=== PATIENT | female | born 1940 | race American Indian/Alaskan Native ===

== ENCOUNTER 2017-04-01 06:14 | Day surgery (SDC) | payer MEDICARE ==
[2017-04-01] MEDS ORDERED: ECOTRIN PO ONE (06:38)
[2017-04-01] MEDS ORDERED: NACL 0.9% 500 ML 500 ML IV SCH (07:00)
[2017-04-01 07:04] LABS: Hematocrit 37.7 % (30.3-42.9); Mean Corpuscular HGB Conc 35 % (30-34); Mean Corpuscular Hemoglobin 31 pg (28-32); Mean Corpuscular Volume 91 fl (79-97); Platelet Count 245 K/mm3 (140-440); Red Blood Count 4.16 M/mm3 (3.65-5.03); Red Cell Distribution Width 13.2 % (13.2-15.2); White Blood Count 5.1 K/mm3 (4.5-11.0)
[2017-04-01 07:20] LABS: INR 0.95 (0.87-1.13)
[2017-04-01 07:28] LABS: Anion Gap 16 mmol/L; BUN/Creatinine Ratio 18.57; Blood Urea Nitrogen 13 mg/dL (7-17); Carbon Dioxide 29 mmol/L (22-30); Chloride 100.9 mmol/L (98-107); Glucose 171 mg/dL (65-100); Potassium 3.4 mmol/L (3.6-5.0); Sodium 142 mmol/L (137-145)
[2017-04-01 08:36] LABS: Blastocytes % (Manual) 0 %
[2017-04-01 08:40] LABS: Diff Status Complete; RBC Morphology Normal
[2017-04-01] MEDS ORDERED: HEPARIN 10,000 UNITS/10 ML ONE (09:56)
[2017-04-01] MEDS ORDERED: XYLOCAINE 2% INFILTRATI ONE (09:56)
[2017-04-01] MEDS ORDERED: NITROGLYCERIN SYRINGE 0 ML ONE (09:56)
[2017-04-01] MEDS ORDERED: HEPARIN/NS 5000 UNIT/500ML(CATH LAB) 1,000 ML IR ONE (09:56)
[2017-04-01] MEDS ORDERED: VERSED ONE (09:57)
[2017-04-01] MEDS ORDERED: SUBLIMAZE ONE (09:57)
--- NOTE | 2017-04-01 10:53 | Discharge Summary ---
Short Stay Discharge Plan Activity: advance as tolerated Weight Bearing Status: Partial Weight Bearing Diet: low fat, low cholesterol, low salt, diabetic Wound: keep clean and dry Special Instructions: no heavy lifting (3 days) Follow up with: SILVIA CAMERON MD [Primary Care Provider] - 7 Days AXEL AGUIRRE MD [Staff Physician] - 7 Days
[2017-04-01] MEDS ORDERED: NACL 0.9% 1000 ML 1,000 ML IV SCH (11:00)
--- NOTE | 2017-04-01 11:37 | Cardiac Catherization Report ---
CARDIAC CATHETERIZATION REASON FOR PROCEDURE: Chest pain and abnormal thallium stress test. PROCEDURE: The patient was prepped and draped in a sterile fashion after informed consent. Right femoral artery was entered using the Seldinger technique followed by placement of a 6-Malay sheath. Selective left and right coronary angiography was performed using #4 right and left Luana catheters. A pigtail catheter was used for left ventricular angiography. The catheters were removed, sheath removed, and hemostasis achieved using an Angio-Seal device. The patient was returned to the postprocedure unit in stable condition. There were no complications. FINDINGS: HEMODYNAMICS: Left ventricle end-diastolic pressure was 23, following coronary angiography. Ascending aortic pressure was 166/82. There was no significant pressure gradient on pullback across the aortic valve. CORONARY ANGIOGRAPHY: There was mild irregularities of the left main coronary artery. The left anterior descending artery contained a focal, 10% to 20% stenosis of its mid segment. Before that, a medium sized proximal diagonal branch of the LAD contain diffuse moderate atherosclerosis in its proximal to mid segment. Otherwise, the rest of the LAD and diagonal systems were free of significant disease. The circumflex artery contained a proximal, 30% to 40% stenosis. Following this, mild irregularities were noted of the rest of the circumflex system. The right coronary artery was dominant. This vessel contained a proximal 30% to 50% stenosis. This was followed by another, 30% to 50% stenosis of the distal AV groove segment, midway between the acute margin and the origin of the right posterior descending branch. There was normal left ventricular systolic function, ejection fraction 55% to 60%. CONCLUSION: 1. Mild to moderate, nonobstructive 3-vessel atherosclerosis as noted above. 2. Normal left ventricular systolic function, ejection fraction of 55% to 60%. RECOMMENDATION: Aggressive risk factor modification, medical therapy. JOB# [id number] DELFINA/BARTOLO BARNES
[2017-04-01 15:13] VITALS: BP 164/76
== END 2017-04-01 15:40 | disposition home or self-care (01) ==
LOC: CATHLABREC 06:14
PROVIDERS: ATTEND Internal Medicine Cardiovascular Disease
DX: I25.10 Atherosclerotic heart disease of native coronary artery without angina pectoris (principal); I10 Essential (primary) hypertension; D64.9 Anemia, unspecified; J45.909 Unspecified asthma, uncomplicated; G47.00 Insomnia, unspecified; M15.9 Polyosteoarthritis, unspecified; E10.9 Type 1 diabetes mellitus without complications; E78.5 Hyperlipidemia, unspecified; Z90.710 Acquired absence of both cervix and uterus; Z96.659 Presence of unspecified artificial knee joint; Z79.82 Long term (current) use of aspirin; Z79.4 Long term (current) use of insulin; Z79.899 Other long term (current) drug therapy; Z98.890 Other specified postprocedural states; Z82.49 Family history of ischemic heart disease and other diseases of the circulatory system
CPT/HCPCS: 36415; 80048; 82962; 85007; 85025; 85610; 85730; 93005; 93010; 93458; C1760; C1894; J1644; J2250; J3010; J7040; Q9967

== ENCOUNTER 2018-02-12 10:59 | Outpatient (CLI) | payer MEDICARE ==
[2018-02-12 11:52] LABS: Blood Urea Nitrogen 8 mg/dL (7-17)
--- NOTE | 2018-02-12 16:48 | Cat Scan Report ---
FINAL REPORT EXAM: CT ABDOMEN PELVIS W CON HISTORY: GASTROINTESTINAL STROMAL TUMOR OF STOMACH TECHNIQUE: CT of the abdomen and pelvis was performed after the administration of intravenous contrast. Subsequently, CT of the abdomen and pelvis was performed in the delayed phase. Reconstructions were included in the coronal and sagittal planes. PRIORS: None. FINDINGS: Lower thorax: There is a 3 millimeter nodule in the anterior aspect of the right lower lobe on series 2, image 126. 2 millimeter pulmonary nodule is seen in the anterior aspect of the right lower lobe on series 2, image 128. Mild coronary artery calculi are seen. Liver: The liver is normal in attenuation. No intrahepatic biliary duct dilation. No focal hepatic lesions. Gallbladder/ biliary system: No cholelithiasis. The common bile duct appears nondilated. Spleen: No splenic lesions are seen. Pancreas: No pancreatic lesions are seen. No pancreatic duct dilation. Kidneys: No renal masses, cysts or hydronephrosis. Adrenal glands: No adrenal masses. Vasculature: The abdominal and pelvic vasculature is patent without variant anatomy. Atherosclerotic calculi are seen in the abdominal aorta. Lymph nodes: Mildly prominent retroperitoneal and jeyson hepatis lymph nodes are seen. A lymph node in the portacaval region measures 1.8 x 1.1 centimeters. Several mildly enlarged right lower quadrant lymph nodes are seen. One lymph node just anterior to the right psoas muscle measures 1.3 x 1.3 centimeters. Bowel, mesentery, peritoneum: No bowel obstruction. No free fluid or free air. The appendix was not definitively seen. No colonic diverticulosis. There is suggestion of mild wall thickening of the gastric antrum. Urinary bladder: No filling defects are seen. Pelvis: Post hysterectomy. Abdominal wall: There is a small fat containing umbilical hernia. Bones: Degenerative changes are seen in the spine. Mild anterolisthesis of L4 on L5 is likely chronic related to degenerative change. IMPRESSION: 1. Wall thickening of the gastric antrum may be related to the patient's known gastrointestinal stromal tumor of the stomach. 2. Several prominent abdominal and pelvic lymph nodes may be reactive versus neoplastic. 3. Small right lower lobe pulmonary nodules may represent metastatic disease versus pulmonary granulomata.
--- NOTE | 2018-02-12 17:01 | Cat Scan Report ---
FINAL REPORT EXAM: CT CHEST W CON HISTORY: GASTROINTESTINAL STROMAL TUMOR OF STOMACH TECHNIQUE: CT of the chest was performed after the administration of intravenous contrast. Note that the CT images of the abdomen and pelvis were also included on this accession number however were dictated under a separate accession number. Reconstructions were included in the coronal and sagittal planes. PRIORS: None. FINDINGS: Great vessels: The thoracic aorta is normal in caliber. The great vessels are patent. Lungs and airways: No pleural effusion. 3 millimeter pulmonary nodule seen in the anterior aspect of the right lower lobe on series 3, image 73. A 2 millimeter pulmonary nodule seen in the anterior aspect of the right lower lobe on series 3, image 75. no airspace consolidation. The airways are patent. No bronchiectasis. Mediastinum, heart, pericardium: No mediastinal lymphadenopathy. No cardiac chamber enlargement. No pericardial effusion. Mild coronary artery calculi are seen. Thoracic inlet, chest wall, axilla: No chest wall masses. The visualized portions of the thyroid gland demonstrate no focal lesion. No axillary lymphadenopathy. Upper abdomen: The visualized structures demonstrate no specific abnormality. Bones: Degenerative changes are seen in the spine. IMPRESSION: 1. Two small right lower lobe pulmonary nodules may represent metastatic disease versus pulmonary granulomata. 2. Mild coronary artery calculi.
== END 2018-02-12 11:00 | disposition home or self-care (01) ==
LOC: CT 10:59
PROVIDERS: ATTEND Internal Medicine Hematology & Oncology
DX: R91.1 Solitary pulmonary nodule (principal); I25.10 Atherosclerotic heart disease of native coronary artery without angina pectoris; M47.9 Spondylosis, unspecified; K21.9 Gastro-esophageal reflux disease without esophagitis; I10 Essential (primary) hypertension; E78.00 Pure hypercholesterolemia, unspecified; J45.909 Unspecified asthma, uncomplicated; M19.90 Unspecified osteoarthritis, unspecified site; E11.9 Type 2 diabetes mellitus without complications; Z90.710 Acquired absence of both cervix and uterus
CPT/HCPCS: 36415; 71260; 74177; 82565; 84520; Q9967

== ENCOUNTER 2018-07-23 12:50 | Emergency (ER) | payer MEDICARE ==
--- NOTE | 2018-07-23 13:35 | Emergency Department Report ---
Blank Doc - Documentation Documentation: 77-year-old female with history of GIST tumor presents to the ED for evaluation of pain resulting from syncopal episode on yesterday. Patient reports weakness over the last few days. Patient states yesterday she was walking with her cane, became lightheaded and passed out briefly. Patient states she hit her head, now reports mild headache that comes and goes. Also has pain to left posterior shoulder. Since yesterday's fall she has also been having right leg weakness, d enies pain to the leg. Will place orders for CT head, labs, EKG, and xrays. Patient will be placed over in the main ER for further evaluation.
[2018-07-23 13:53] LABS: Hemoglobin 12.1 gm/dl (10.1-14.3); Mean Corpuscular HGB Conc 34 % (30-34); Mean Corpuscular Volume 92 fl (79-97); Platelet Count 265 K/mm3 (140-440); Red Cell Distribution Width 13.8 % (13.2-15.2)
[2018-07-23 14:01] LABS: INR 0.93 (0.87-1.13)
[2018-07-23 14:02] LABS: BUN/Creatinine Ratio 12; Blood Urea Nitrogen 11 mg/dL (7-17); Calcium 8.7 mg/dL (8.4-10.2); Hemolysis Index 18; Partial Thromboplastin Time 26.9 Sec. (24.2-36.6)
--- NOTE | 2018-07-23 14:28 | XRay Report ---
LEFT SHOULDER RADIOGRAPHS INDICATION: Fall, pain. COMPARISON: None similar. FINDINGS: Frontal and Y views of the left shoulder somewhat technically limited, though suggests grossly intact humeral head against the glenoid, to the extent assessed. Intact AC joint articulation as well. Normal imaged scapula, left lung and ribs. Possible osteopenia. CONCLUSION: No acute left shoulder radiographic abnormality on this limited exam, as described. Please correlate. Thank you for the opportunity to participate in this patient's care.
[2018-07-23 14:29] LABS: Basophils % (Manual) 0 % (0.0-1.8); Total Cells Counted 100
[2018-07-23 14:30] LABS: Anisocytosis 1+; Platelet Estimate Consistent w Auto; Poikilocytosis 1+
--- NOTE | 2018-07-23 14:34 | Emergency Department Report ---
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 NO syncope. She tripped over curb. She did not eat breakfast and had been feeling unwell. She also has had 3-4 weeks of left upper back pain in the rhomboid region. Pain is quite severe. Started off as a pimple then developed to itching. After the skin process resolved, she still had persistent pain. She evaluated by her oncology physician yesterday and refered to ER for imaging. She takes tramadol in general for arthritic type pain. She also has had mild intermittent shooting pains in her chest. She is followed by PCP Dr. Jax Gudino. She also is followed by [facility]. -: Gradual, week(s) (3-4) Location: head, chest - Related Data Home Medications Medication Instructions Recorded Confirmed Last Taken Aspirin EC [Aspirin Enteric Coated 81 mg PO QDAY 04/01/17 04/01/17 03/31/17 TAB] Carvedilol [Coreg] 6.25 mg PO BID 04/01/17 04/01/17 03/31/17 Cyclobenzaprine HCl [Flexeril 5 MG 5 mg PO PRN PRN 04/01/17 04/01/17 1 Month Ago TAB] ~03/01/17 Insulin Glargine,Hum.rec.anlog 0 units SQ QHS 04/01/17 04/01/17 03/31/17 [Lantus Solostar] Lansoprazole [Prevacid] 30 mg PO QDAY 04/01/17 04/01/17 03/31/17 Rosuvastatin Calcium [Crestor] 40 mg PO QHS 04/01/17 04/01/17 03/31/17 glipiZIDE [glipiZIDE XL] 10 mg PO BID 04/01/17 04/01/17 03/31/17 hydroCHLOROthiazide [HCTZ] 12.5 mg PO QDAY 04/01/17 04/01/17 03/31/17 Previous Rx's Medication Instructions Recorded Last Taken Type HYDROcodone/APAP 7.5-325 [Maple 1 each PO Q8HR PRN #15 tablet 02/02/15 2 Months Ago Rx 7.5-325 mg TAB] ~01/29/17 HYDROcodone/APAP 5-325 [Maple 1 each PO Q6HR PRN #15 tablet 07/23/18 Unknown Rx 5/325] Allergies Allergy/AdvReac Type Severity Reaction Status Date / Time No Known Allergies Allergy Verified 10/28/14 16:09 ED Review of Systems ROS: Stated complaint: PAIN IN BACK/WEAK/FELL Other details as noted in HPI Comment: All other systems reviewed and negative Constitutional: malaise Cardiovascular: chest pain Musculoskeletal: back pain ED Past Medical Hx - Past Medical History Hx Hypertension: Yes (5yrs ago) Hx Heart Attack/AMI: No Hx Congestive Heart Failure: No Hx Diabetes: Yes (IDDM) Hx GERD: Yes Hx Arthritis: Yes Hx Seizures: No Hx Asthma: Yes Additional medical history: Stomach Ca- taking gleevec - Surgical History Additional Surgical History: cardiac cath 2017 no stent "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 infection in my toe 3 wks ago" - Social History Smoking Status: Never Smoker Substance Use Type: None - Medications Home Medications: Home Medications Medication Instructions Recorded Confirmed Last Taken Type HYDROcodone/APAP 7.5-325 [Maple 1 each PO Q8HR PRN #15 tablet 02/02/15 04/01/17 2 Months Ago Rx 7.5-325 mg TAB] ~01/29/17 Aspirin EC [Aspirin Enteric Coated 81 mg PO QDAY 04/01/17 04/01/17 03/31/17 History TAB] Carvedilol [Coreg] 6.25 mg PO BID 04/01/17 04/01/17 03/31/17 History Cyclobenzaprine HCl [Flexeril 5 MG 5 mg PO PRN PRN 04/01/17 04/01/17 1 Month Ago History TAB] ~03/01/17 Insulin Glargine,Hum.rec.anlog 0 units SQ QHS 04/01/17 04/01/17 03/31/17 History [Lantus Solostar] Lansoprazole [Prevacid] 30 mg PO QDAY 04/01/17 04/01/17 03/31/17 History Rosuvastatin Calcium [Crestor] 40 mg PO QHS 04/01/17 04/01/17 03/31/17 History glipiZIDE [glipiZIDE XL] 10 mg PO BID 04/01/17 04/01/17 03/31/17 History hydroCHLOROthiazide [HCTZ] 12.5 mg PO QDAY 04/01/17 04/01/17 03/31/17 History HYDROcodone/APAP 5-325 [Maple 1 each PO Q6HR PRN #15 tablet 07/23/18 Unknown Rx 5/325] ED Physical Exam - General Limitations: No Limitations General appearance: alert, in no apparent distress - Head Head exam: Present: atraumatic, normocephalic - Eye Eye exam: Present: normal appearance - ENT ENT exam: Present: mucous membranes moist - Neck Neck exam: Present: normal inspection. Absent: tenderness, meningismus - Respiratory Respiratory exam: Present: normal lung sounds bilaterally. Absent: respiratory distress, wheezes, rales, rhonchi - Cardiovascular Cardiovascular Exam: Present: regular rate, normal rhythm. Absent: systolic murmur, diastolic murmur, rubs, gallop - GI/Abdominal GI/Abdominal exam: Present: soft, normal bowel sounds. Absent: distended, tenderness, guarding, rebound - Extremities Exam Extremities exam: Present: normal inspection - Back Exam Back exam: Present: normal inspection, full ROM. Absent: tenderness, CVA tenderness (R), CVA tenderness (L), vertebral tenderness - Neurological Exam Neurological exam: Present: alert, oriented X3 - Psychiatric Psychiatric exam: Present: normal affect, normal mood - Skin Skin exam: Present: warm, dry, intact, normal color. Absent: rash ED Course Vital Signs 07/23/18 07/23/18 07/23/18 12:57 13:05 13:47 Temperature 97.7 F 97.7 F Pulse Rate 84 85 Respiratory 20 20 Rate Blood Pressure 168/85 168/85 O2 Sat by Pulse 100 100 84 Oximetry 07/23/18 07/23/18 07/23/18 14:01 14:15 14:50 Temperature Pulse Rate Respiratory Rate Blood Pressure 129/65 129/65 129/65 O2 Sat by Pulse 96 98 100 Oximetry 07/23/18 07/23/18 07/23/18 15:01 15:15 15:31 Temperature Pulse Rate 82 81 81 Respiratory 12 13 12 Rate Blood Pressure 155/78 155/78 129/65 O2 Sat by Pulse 97 100 100 Oximetry 07/23/18 07/23/18 07/23/18 15:45 16:01 16:15 Temperature Pulse Rate 80 78 80 Respiratory 19 16 11 L Rate Blood Pressure 129/65 129/65 129/65 O2 Sat by Pulse 98 96 98 Oximetry 07/23/18 16:57 Temperature Pulse Rate Respiratory Rate Blood Pressure 129/65 O2 Sat by Pulse 91 Oximetry ED Medical Decision Making - Lab Data Result diagrams: 07/23/18 13:40 07/23/18 13:40 Laboratory Results - last 24 hr 07/23/18 07/23/18 07/23/18 13:40 13:40 13:40 WBC 4.3 L RBC 3.90 Hgb 12.1 Hct 36.0 MCV 92 MCH 31 MCHC 34 RDW 13.8 Plt Count 265 Lymph % (Auto) Filter Machine Operator Add Manual Diff Complete Total Counted 100 Seg Neutrophils % Filter Machine Operator Seg Neuts % (Manual) 29.0 L Band Neutrophils % 0 Lymphocytes % (Manual) 59.0 H Reactive Lymphs % (Man) 0 Monocytes % (Manual) 6.0 Eosinophils % (Manual) 6.0 H Basophils % (Manual) 0 Metamyelocytes % 0 Myelocytes % 0 Promyelocytes % 0 Blast Cells % 0 Nucleated RBC % Not Reportable Seg Neutrophils # Man 1.2 L Band Neutrophils # 0.0 Lymphocytes # (Manual) 2.5 Abs React Lymphs (Man) 0.0 Monocytes # (Manual) 0.3 Eosinophils # (Manual) 0.3 Basophils # (Manual) 0.0 Metamyelocytes # 0.0 Myelocytes # 0.0 Promyelocytes # 0.0 Blast Cells # 0.0 WBC Morphology Not Reportable Hypersegmented Neuts Not Reportable Hyposegmented Neuts Not Reportable Hypogranular Neuts Not Reportable Smudge Cells Not Reportable Toxic Granulation Not Reportable Toxic Vacuolation Not Reportable Dohle Bodies Not Reportable Pelger-Huet Anomaly Not Reportable Megan Rods Not Reportable Platelet Estimate Consistent w auto Clumped Platelets Not Reportable Plt Clumps, EDTA Not Reportable Large Platelets Not Reportable Giant Platelets Not Reportable Platelet Satelliting Not Reportable Plt Morphology Comment Not Reportable RBC Morphology Not Reportable Dimorphic RBCs Not Reportable Polychromasia Not Reportable Hypochromasia Not Reportable Poikilocytosis 1+ Anisocytosis 1+ Microcytosis Not Reportable Macrocytosis Not Reportable Spherocytes Not Reportable Pappenheimer Bodies Not Reportable Sickle Cells Not Reportable Target Cells Not Reportable Tear Drop Cells Not Reportable Ovalocytes Not Reportable Helmet Cells Not Reportable Meléndez-Western Bodies Not Reportable [place] Rings Not Reportable James Cells Not Reportable Bite Cells Not Reportable Crenated Cell Not Reportable Elliptocytes Few Acanthocytes (Spur) Not Reportable Rouleaux Not Reportable Hemoglobin C Crystals Not Reportable Schistocytes Not Reportable Malaria parasites Not Reportable Tenzin Bodies Not Reportable Hem Pathologist Commnt No PT 12.9 INR 0.93 APTT 26.9 Sodium 137 Potassium 3.8 Chloride 97.2 L Carbon Dioxide 30 Anion Gap 14 BUN 11 Creatinine 0.9 Estimated GFR > 60 BUN/Creatinine Ratio 12 Glucose 118 H Calcium 8.7 Troponin T < 0.010 - Radiology Data Radiology results: report reviewed, image reviewed According to radiology reports: CT head without acute process Left shoulder radiograph: No acute process Chest x-ray: No acute process Lumbar spine radiographs: No acute process Thoracic spine to grass: No acute process Cervical spine x-rays: No fracture no acute process CTA Angio: No acute intrathoracic process, persistent thickness of the distal esophageal wall - Medical Decision Making 1. left upper back pain without rib fx or vertebral fracture, no PE on CT angio, likely musculoskeletal rhomboid region given prescription for Maple strongly recommended follow-up PCP 2. weakness after 3 weeks of Gleevac therapy, possibly due to hypoglycemia yesterday Has been monitored for 5 hours here in the ED without acute cardiac events or arrhythmia. Do not suspect cardiac cause for generalized weakness on yesterday. Critical care attestation.: If time is entered above; I have spent that time in minutes in the direct care of this critically ill patient, excluding procedure time. ED Disposition Clinical Impression: Acute thoracic back pain, GIST, malignant, Generalized weakness Disposition: DC-01 TO HOME OR SELFCARE Is pt being admited?: No Does the pt Need Aspirin: No Condition: Stable Instructions: Weakness (ED), Back Pain (ED) Additional Instructions: Your CT chest did not show pulmonary embolism or new malignancy. Other tests obtained include CT head, lumbar spine x-rays, thoracic spine x- rays, cervical spine x-rays, chest x-ray. Prescriptions: HYDROcodone/APAP 5-325 [Maple 5/325] 1 each PO Q6HR PRN #15 tablet PRN Reason: Pain Referrals: PRIMARY CARE, [Primary Care Provider] - MIMI
--- NOTE | 2018-07-23 14:41 | XRay Report ---
PORTABLE CHEST INDICATION: Fall, pain. COMPARISON: 02/02/2015 FINDINGS: Portable, frontal chest radiograph demonstrates stable cardiomediastinal silhouette/borderline cardiomegaly. Clear lungs. Multilevel thoracic spondylosis. CONCLUSION: No acute chest process, as described. Thank you for the opportunity to participate in this patient's care.
--- NOTE | 2018-07-23 14:55 | XRay Report ---
THORACIC SPINE RADIOGRAPHS INDICATION: Fall, back pain. COMPARISON: None similar. FINDINGS: AP, lateral and swimmer's view to evaluate thoracic spine demonstrate normal vertebral body stature, alignment and disc heights. Multilevel spurring/osteophytes noted, predominantly anterior and right lateral mid thoracic. No abnormal paraspinal density. Normal imaged lungs. CONCLUSION: Thoracic spondylosis without acute radiographic abnormality, as described. Thank you for the opportunity to participate in this patient's care.
--- NOTE | 2018-07-23 14:59 | XRay Report ---
LUMBAR SPINE RADIOGRAPHS INDICATION: Fall, back pain. COMPARISON: None similar. FINDINGS: AP and lateral lumbar spine radiographs demonstrate normal vertebral body stature. Slight, 2 mm anterolisthesis of L4 over L5 possible. Mid to lower lumbar facet arthropathy also suspected. Slight lumbar degenerative spurring at few levels. Faint aortic atherosclerotic calcifications. Numerous pelvic phleboliths. Intact SI joints. Nonobstructive bowel gas pattern. CONCLUSION: No acute lumbar radiographic abnormality with few degenerative changes noted, as described. Thank you for the opportunity to participate in this patient's care.
[2018-07-23 15:31] LABS: Bilirubin,Urine NEG (Negative); Blood,Urine NEG (Negative); Color,Urine Straw (Yellow); Protein,Urine <15 mg/dL mg/dL (Negative); RBC,Urine < 1.0 /HPF (0.0-6.0); Urobilinogen,Urine < 2.0 mg/dL (<2.0); WBC,Urine < 1.0 /HPF (0.0-6.0)
--- NOTE | 2018-07-23 17:26 | Cat Scan Report ---
FINAL REPORT EXAM: CT HEAD/BRAIN WO CON HISTORY: syncope, head injury TECHNIQUE: 2.5 millimeter axial images from the skullbase to the vertex. Comparison: None FINDINGS: There is no evidence of an acute intracranial process, intracranial hemorrhage or mass effect. The ventricles are normal size. The visualized portions of the orbits, paranasal and mastoid sinuses are unremarkable. There is no evidence of fracture. IMPRESSION: 1. No evidence of an acute intracranial process, intracranial hemorrhage or mass effect.
--- NOTE | 2018-07-23 17:53 | Cat Scan Report ---
FINAL REPORT EXAM: CT ANGIO CHEST HISTORY: left back pain TECHNIQUE: Following administration of IV contrast axial helical imaging was performed through the c hest with maximum intensity projection images and sagittal and coronal reformatted images obtained. Comparison: CT chest and CT abdomen and pelvis dated February 12, 2018 FINDINGS: There is no evidence of infiltrate, pneumothorax or pleural fluid collection. The previously described nodular densities are not clearly visualized. The trachea and bronchi are patent. The heart appears to be normal size. The thoracic aorta is normal caliber. There is no evidence of intrathoracic adenopathy. No filling defects are demonstrated within the pulmonary arteries to suggest the presence of pulmonar y artery emboli. The visualized portion the upper abdomen is notable for evidence of mural plaque formation in the sup rarenal abdominal aorta as was demonstrated on the previous CT abdomen and pelvis dated February 12 8. There is the appearance of increased thickness of the wall of the distal esophagus this also appears to been demonstrated on the previous study but may be slightly increased in degree in the interval. The bony structures are notable for spondylitic change of the thoracic spine IMPRESSION: 1. No evidence of pulmonary artery emboli. 2. No evidence of an acute intrathoracic process. 3. The small nodular densities demonstrated on the previous chest CT are not as clearly demonstrated on today's study. 4. Mural plaque formation suprarenal abdominal aorta as was demonstrated on the previous CT abdomen a nd pelvis dated February 12, 2018. 5. Spondylitic change thoracic spine. 6. Appearance of increased thickness of the wall of the distal esophagus which may be slightly incre ased in degree compared to the previous study. This may represent changes of esophagitis. However, a mural mass in this region cannot entirely be excluded. Correlation with clinical symptoms and further clinical evaluation may be helpful.
[2018-07-23 18:39] VITALS: BP 160/65
[2018-07-23] MEDS ORDERED: NORCO 5/325 PO ONE (18:50)
--- NOTE | 2018-07-25 15:02 | XRay Report ---
CERVICAL SPINE, 3 views: History: Fall back pain. Findings: The vertebral bodies, disk spaces, posterior elements and prevertebral soft tissues are unremarkable. The dens is intact. No acute fracture or malalignment is identified. Impression: 1. No evidence for acute injury to the cervical spine.
== END 2018-07-23 19:00 | disposition home or self-care (01) ==
LOC: ED 12:50
DX: C49.A0 Gastrointestinal stromal tumor, unspecified site (principal); M54.89 Other dorsalgia; I10 Essential (primary) hypertension; E11.9 Type 2 diabetes mellitus without complications; K21.9 Gastro-esophageal reflux disease without esophagitis; J45.909 Unspecified asthma, uncomplicated; M19.90 Unspecified osteoarthritis, unspecified site; Z79.899 Other long term (current) drug therapy
CPT/HCPCS: 36415; 70450; 71045; 71275; 72040; 72070; 72100; 73030; 80048; 81001; 84484; 85007; 85025; 85610; 85730; 99284; Q9967

== ENCOUNTER 2018-10-03 11:34 | Outpatient (CLI) | payer MEDICARE ==
[2018-10-03 12:12] LABS: Blood Urea Nitrogen 9 mg/dL (7-17)
--- NOTE | 2018-10-03 17:33 | Cat Scan Report ---
PROCEDURE: CT CHEST W CON HISTORY: GASTRO STROMAL TUMOR OF STOMACH FINDINGS: Contrast-enhanced CT of the chest was performed following the intravenous administration of iodinated contrast. Comparison is made to the prior CT angiogram of July [address] chest of February 12, 2018. These images demonstrate no CT evidence of pulmonary thromboembolic disease. There is no aortic disse ction. There is a noncalcified right middle lobe nodule, coronal image 110, 0.4 cm, unchanged from prior exa mination of February 2018. The thyroid gland is unremarkable. There is a noncalcified left lobe thyroid nodule, 0.5 cm unchanged from prior examination of February. No significant lymphadenopathy is seen in the chest. There is mild wall thickening of the middle and distal esophagus consistent with esophagitis. There are endplate degenerative changes at all levels of the mid and lower thoracic spine. In the upper abdomen the adrenal glands are within normal limits. An abdominal CT has been performed and will be reported separately. IMPRESSION: Right middle lobe nodule unchanged from prior examination of February 2018 No acute consolidative pulmonary infiltrate No CT evidence of pulmonary thromboembolic disease This document is electronically signed by Matt Herrera MD., October 03 2018 05:31:14 PM ET
--- NOTE | 2018-10-03 18:32 | Cat Scan Report ---
PROCEDURE: CT ABDOMEN PELVIS W CON HISTORY: GASTRO STROMAL TUMOR OF STOMACH FINDINGS: Contrast-enhanced CT of the abdomen and pelvis was performed and compared to prior examination of Feb ust 2017. There is right middle lobe linear atelectasis but otherwise the lung bases appear clear. There is a s mall hiatal hernia. There is wall thickening of the distal esophagus consistent with reflux esophagit is. ABDOMEN: There is fatty infiltration of the liver without suspect focal hepatic lesion. There is wall thickening of the gastric antrum, likely gastroenteritis. This was also present on the prior exam. There is no free air. The spleen, adrenal glands, pancreas are unremarkable. No significant lymphadenopathy is seen in the abdomen. There is no renal or ureteral calculus. There is mild aortic atherosclerotic change without aneurysmal dilation of the aorta. 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 The superior mesenteric artery and inferior mesenteri c artery are both patent. The renal arteries are patent bilaterally. Pelvis: There is a normal appendix. There is no evidence of diverticulitis. There has been a hysterectomy. The urinary bladder is within normal limits. There is no free air. There is 0.3 cm degenerative anterolisthesis of L4 on L5, similar to prior exam IMPRESSION: Small hiatal hernia with esophageal wall thickening consistent with esophagitis ABDOMEN: Antral gastritis Fatty infiltration of the liver Pelvis: No evidence of diverticulitis Hysterectomy This document is electronically signed by Matt Herrera MD., October 03 2018 06:30:27 PM ET
== END 2018-10-03 11:35 | disposition home or self-care (01) ==
LOC: CT 11:34
PROVIDERS: ATTEND Internal Medicine Hematology & Oncology
DX: K44.9 Diaphragmatic hernia without obstruction or gangrene (principal); K76.0 Fatty (change of) liver, not elsewhere classified; K21.9 Gastro-esophageal reflux disease without esophagitis; E78.00 Pure hypercholesterolemia, unspecified; I10 Essential (primary) hypertension; J45.909 Unspecified asthma, uncomplicated; E11.9 Type 2 diabetes mellitus without complications; M19.90 Unspecified osteoarthritis, unspecified site; Z90.710 Acquired absence of both cervix and uterus
CPT/HCPCS: 36415; 71260; 74177; 82565; 84520; Q9967

== ENCOUNTER 2020-07-21 11:19 | Observation (INO) | payer MEDICARE ==
[2020-07-21] MEDS ORDERED: ASPIRIN 325 MG TAB PO ONE (11:29)
--- NOTE | 2020-07-21 12:01 | XRay Report ---
CHEST PA AND LATERAL VIEWS INDICATION: Chest Pain. COMPARISON: None. FINDINGS: Support devices: None. Heart: Within normal limits. Lungs/Pleura: No acute pulmonary or pleural findings. IMPRESSION: 1. No acute findings. Signer Name: Crow Hernández MD Signed: 07/21/2020 11:56 AM Workstation Name: [id number]
--- NOTE | 2020-07-21 12:44 | Emergency Department Report ---
ED Chest Pain HPI - General Chief Complaint: Chest Pain Stated Complaint: CHEST PAIN Time Seen by Provider: 07/21/20 12:33 Source: patient Mode of arrival: Ambulatory Limitations: No Limitations - History of Present Illness Initial Comments: Patient is 79 years old female with history of hypertension, diabetes and hyperlipidemia. Patient was sent from her orange picker machine operator office for evaluation of left-sided chest pain. Patient stated that pain started 3 weeks ago however get worse last night. Patient described her pain as heaviness aching left-sided r adiates to the left lower extremities. Patient was given aspirin and nitroglycerin by her orange picker machine operator and stated the symptoms improved significantly. Patient denied any shortness of breath, cough, fever or chills. MD Complaint: chest pain -: week(s) (3) Onset: during rest Pain Location: left chest Pain Radiation: LUE Severity: moderate Severity scale (0 -10): 6 Quality: tightness, aching Consistency: intermittent - Related Data Home Medications Medication Instructions Recorded Confirmed Last Taken Aspirin EC [Halfprin EC] 81 mg PO QDAY 04/01/17 04/01/17 03/31/17 Cyclobenzaprine HCl [Flexeril 5 MG 5 mg PO PRN PRN 04/01/17 04/01/17 1 Month Ago TAB] ~03/01/17 Insulin Glargine,Hum.rec.anlog 0 units SQ QHS 04/01/17 04/01/17 03/31/17 [Lantus Solostar] Lansoprazole [Prevacid] 30 mg PO QDAY 04/01/17 04/01/17 03/31/17 Rosuvastatin Calcium [Crestor] 40 mg PO QHS 04/01/17 04/01/17 03/31/17 carvediloL [Coreg] 6.25 mg PO BID 04/01/17 04/01/17 03/31/17 glipiZIDE [glipiZIDE XL] 10 mg PO BID 04/01/17 04/01/17 03/31/17 hydroCHLOROthiazide [HCTZ] 12.5 mg PO QDAY 04/01/17 04/01/17 03/31/17 Previous Rx's Medication Instructions Recorded Last Taken Type HYDROcodone/APAP 7.5-325 [[place] 1 each PO Q8HR PRN #15 tablet 02/02/15 2 Months Ago Rx 7.5-325 mg TAB] ~01/29/17 HYDROcodone/APAP 5-325 [[place] 1 each PO Q6HR PRN #15 tablet 07/23/18 Unknown Rx 5/325] Allergies Allergy/AdvReac Type Severity Reaction Status Date / Time No Known Allergies Allergy Verified 07/21/20 11:25 Heart Score - HEART Score History: Moderately suspicious EKG: Non-specific Age: > 65 Risk factors: > 3 risk factors or hx of atherosclerotic disease Troponin: < normal limit HEART Score: 6 - Critical Actions Critical Actions: 4-6 pts:12-16.6% risk of adverse cardiac event. Should be admitted ED Review of Systems ROS: Stated complaint: CHEST PAIN Other details as noted in HPI Comment: All other systems reviewed and negative Constitutional: denies: chills, fever Respiratory: denies: cough, shortness of breath, SOB with exertion, SOB at rest Cardiovascular: chest pain. denies: palpitations, dyspnea on exertion Gastrointestinal: denies: abdominal pain, nausea, vomiting Musculoskeletal: denies: back pain Neurological: denies: headache, weakness, numbness, paresthesias, confusion ED Past Medical Hx - Past Medical History Hx Hypertension: Yes (5yrs ago) Hx Heart Attack/AMI: No Hx Congestive Heart Failure: No Hx Diabetes: Yes (IDDM) Hx GERD: Yes Hx Arthritis: Yes Hx Seizures: No Hx Asthma: Yes Additional medical history: Stomach Ca- taking gleevec - Surgical History Additional Surgical History: cardiac cath 2017 no stent "the sander portable machine cleaned out an infection in my toe 3 wks ago" - Social History Smoking Status: Never Smoker Substance Use Type: None - Medications Home Medications: Home Medications Medication Instructions Recorded Confirmed Last Taken Type HYDROcodone/APAP 7.5-325 [[place] 1 each PO Q8HR PRN #15 tablet 02/02/15 04/01/17 2 Months Ago Rx 7.5-325 mg TAB] ~01/29/17 Aspirin EC [Halfprin EC] 81 mg PO QDAY 04/01/17 04/01/17 03/31/17 History Cyclobenzaprine HCl [Flexeril 5 MG 5 mg PO PRN PRN 04/01/17 04/01/17 1 Month Ago History TAB] ~03/01/17 Insulin Glargine,Hum.rec.anlog 0 units SQ QHS 04/01/17 04/01/17 03/31/17 History [Lantus Solostar] Lansoprazole [Prevacid] 30 mg PO QDAY 04/01/17 04/01/17 03/31/17 History Rosuvastatin Calcium [Crestor] 40 mg PO QHS 04/01/17 04/01/17 03/31/17 History carvediloL [Coreg] 6.25 mg PO BID 04/01/17 04/01/17 03/31/17 History glipiZIDE [glipiZIDE XL] 10 mg PO BID 04/01/17 04/01/17 03/31/17 History hydroCHLOROthiazide [HCTZ] 12.5 mg PO QDAY 04/01/17 04/01/17 03/31/17 History HYDROcodone/APAP 5-325 [[place] 1 each PO Q6HR PRN #15 tablet 07/23/18 Unknown Rx 5/325] ED Physical Exam - General Limitations: No Limitations General appearance: alert, in no apparent distress - Head Head exam: Present: atraumatic, normocephalic, normal inspection - Eye Eye exam: Present: normal appearance, PERRL - ENT ENT exam: Present: normal exam, normal orophraynx, mucous membranes moist - Neck Neck exam: Present: normal inspection, full ROM. Absent: tenderness, meningismus, lymphadenopathy, thyromegaly - Respiratory Respiratory exam: Present: normal lung sounds bilaterally - Cardiovascular Cardiovascular Exam: Present: regular rate, normal rhythm, normal heart sounds - GI/Abdominal GI/Abdominal exam: Present: soft, normal bowel sounds. Absent: distended, tenderness, guarding, rebound, rigid, organomegaly, mass, bruit, pulsatile mass, hernia - Extremities Exam Extremities exam: Present: normal inspection, full ROM, normal capillary refill. Absent: pedal edema, calf tenderness - Back Exam Back exam: Present: normal inspection, full ROM. Absent: CVA tenderness (R), CVA tenderness (L) - Neurological Exam Neurological exam: Present: alert, oriented X3, CN II-XII intact, normal gait, reflexes normal. Absent: motor sensory deficit - Psychiatric Psychiatric exam: Present: normal mood - Skin Skin exam: Present: warm, intact, normal color ED Course Vital Signs 07/21/20 07/21/20 07/21/20 11:30 13:00 14:10 Temperature 98.5 F Pulse Rate 89 89 83 Respiratory 20 14 12 Rate Blood Pressure 176/93 Blood Pressure 153/76 149/81 [Left] O2 Sat by Pulse 99 98 97 Oximetry ED Medical Decision Making - Lab Data Result diagrams: 07/21/20 13:23 07/21/20 13:23 - EKG Data -: EKG Interpreted by Me EKG shows normal: sinus rhythm Rate: normal - EKG Data Interpretation: nonspecific ST-T wave andrea - Radiology Data Radiology results: report reviewed - Medical Decision Making Patient is 79 years old female with history of hypertension, diabetes and hyperlipidemia. Patient was sent from her orange picker machine operator office for evaluation of left-sided chest pain. Patient stated that pain started 3 weeks ago however get worse last night. Patient described her pain as heaviness aching left-sided radiates to the left lower extremities. Patient was given aspirin and nitroglycerin by her orange picker machine operator and stated the symptoms improved significantly. Patient denied any shortness of breath, cough, fever or chills. EKG showed no ST elevation. Labs reviewed and is unremarkable including a negative troponin. Chest x-ray is unremarkable. I discussed the patient with , patient orange picker machine operator. He advised admit the patient to the hospital for further cardiac work-up. I discussed the patient with . He agreed to admit the patient to medical service for further management. Critical care attestation.: If time is entered above; I have spent that time in minutes in the direct care of this critically ill patient, excluding procedure time. ED Disposition Clinical Impression: Acute chest pain Disposition: OP ADMIT IP TO THIS HOSP Is pt being admited?: Yes Condition: Stable Instructions: Chest Pain (ED) Referrals: BRANDIE RESTREPO MD [Primary Care Provider] - 3-5 Days
[2020-07-21 14:30] LABS: Hemoglobin 12.1 gm/dl (10.1-14.3); Mean Corpuscular HGB Conc 34 % (30-34); Mean Corpuscular Volume 92 fl (79-97); Platelet Count 265 K/mm3 (140-440); Red Blood Count 3.93 M/mm3 (3.65-5.03); Red Cell Distribution Width 13.4 % (13.2-15.2)
[2020-07-21 14:54] LABS: Alanine Aminotransferase 22 units/L (7-56); Albumin 4.1 g/dL (3.9-5); BUN/Creatinine Ratio 18; Blood Urea Nitrogen 14 mg/dL (7-17); Calcium 9.7 mg/dL (8.4-10.2); Hemolysis Index 7
[2020-07-21 14:55] LABS: Bilirubin,Direct < 0.2 mg/dL (0-0.2)
[2020-07-21] MEDS ORDERED: NITROGLYCERIN 0.4 MG TAB SUBL SL PRN (16:17)
[2020-07-21] MEDS ORDERED: DEXTROSE 50% IN WATER (25GM) 50 ML SYRINGE IV PRN (16:17)
[2020-07-21] MEDS ORDERED: ONDANSETRON 4 MG/2 ML INJ IV PRN (16:17)
[2020-07-21] MEDS ORDERED: ACETAMINOPHEN 325 MG TAB PO PRN ×2 (16:17)
[2020-07-21] MEDS ORDERED: MORPHINE 4 MG/1 ML INJ IV PRN (16:17)
--- NOTE | 2020-07-21 16:31 | History and Physical Report ---
History of Present Illness Date of examination: 07/21/20 Date of admission: 07/21/2020 Chief complaint: Chest Pain History of present illness: 79-year-old -[place] female with known history of hypertension, diabetes mellitus and hyperlipidemia been referred to the emergency room from her ecology professor office today for evaluation of left-sided chest pain. Chest pain was said to have started about 3 weeks ago but got worse overnight. Pain was described as heaviness radiating towards the left lower extremity. She denies any headache or dizziness, no diaphoresis, no nausea or vomiting. Denies any fever or chills. Patient was given some nitroglycerin and aspirin at the ecology professor office which she stated helped in improving the pain. Work-up in the emergency room today, chest x-ray, EKG and troponin were unremarkable. Patient being admitted for evaluation of chest pain. Past History Past Medical History: diabetes, GERD, hypertension, hyperlipidemia Past Surgical History: No surgical history Social history: no significant social history Family history: no significant family history Medications and Allergies Allergies Allergy/AdvReac Type Severity Reaction Status Date / Time No Known Allergies Allergy Verified 07/21/20 11:25 Home Medications Medication Instructions Recorded Confirmed Last Taken Type HYDROcodone/APAP 7.5-325 [[place] 1 each PO Q8HR PRN #15 tablet 02/02/15 04/01/17 2 Months Ago Rx 7.5-325 mg TAB] ~01/29/17 Aspirin EC [Halfprin EC] 81 mg PO QDAY 04/01/17 04/01/17 03/31/17 History Cyclobenzaprine HCl [Flexeril 5 MG 5 mg PO PRN PRN 04/01/17 04/01/17 1 Month Ago History TAB] ~03/01/17 Insulin Glargine,Hum.rec.anlog 0 units SQ QHS 04/01/17 04/01/17 03/31/17 History [Lantus Solostar] Lansoprazole [Prevacid] 30 mg PO QDAY 04/01/17 04/01/17 03/31/17 History Rosuvastatin Calcium [Crestor] 40 mg PO QHS 04/01/17 04/01/17 03/31/17 History carvediloL [Coreg] 6.25 mg PO BID 09/25/17 09/25/17 09/24/17 History glipiZIDE [glipiZIDE XL] 10 mg PO BID 04/01/17 04/01/17 03/31/17 History hydroCHLOROthiazide [HCTZ] 12.5 mg PO QDAY 04/01/17 04/01/17 03/31/17 History HYDROcodone/APAP 5-325 [[place] 1 each PO Q6HR PRN #15 tablet 07/23/18 Unknown Rx 5/325] Active Meds: Active Medications Acetaminophen (Acetaminophen 325 Mg Tab) 650 mg PO Q4H PRN PRN Reason: Pain MILD(1-3)/Fever >100.5/RUIZ Acetaminophen (Acetaminophen 325 Mg Tab) 650 mg PO Q6H PRN PRN Reason: Pain, Mild (1-3) Aspirin (Aspirin Ec 325 Mg Tab) 325 mg PO QDAY [facility] Dextrose (Dextrose 50% In Water (25gm) 50 Ml Syringe) 50 ml IV Q30MIN PRN; Protocol PRN Reason: Hypoglycemia Enoxaparin Sodium (Enoxaparin 40 Mg/0.4 Ml Inj) 40 mg SUB-Q QDAY@2200 [facility]; Protocol Insulin Human Lispro (Insulin Lispro 100 Unit/Ml Vial 3 Ml) 0 unit SUB-Q ACHS [facility]; Protocol Morphine Sulfate (Morphine 4 Mg/1 Ml Inj) 2 mg IV Q5MIN PRN PRN Reason: Chest Pain Nitroglycerin (Nitroglycerin 0.4 Mg Tab Subl) 0.4 mg SL Q5M PRN PRN Reason: Chest Pain Ondansetron HCl (Ondansetron 4 Mg/2 Ml Inj) 4 mg IV Q8H PRN PRN Reason: Nausea And Vomiting Sodium Chloride (Sodium Chloride 0.9% 10 Ml Flush Syringe) 10 ml IV BID [facility] Sodium Chloride (Sodium Chloride 0.9% 10 Ml Flush Syringe) 10 ml IV PRN PRN PRN Reason: LINE FLUSH Sodium Chloride (Sodium Chloride 0.9% 10 Ml Flush Syringe) 10 ml IV PRN PRN PRN Reason: LINE FLUSH Review of Systems Constitutional: no fever, no chills Ears, nose, mouth and throat: no nasal congestion, no sore throat Cardiovascular: chest pain, no palpitations Respiratory: no cough, no shortness of breath Gastrointestinal: no abdominal pain, no nausea, no vomiting, no diarrhea Genitourinary Female: no flank pain, no dysuria, no hematuria Musculoskeletal: no neck pain, no low back pain Integumentary: no rash, no pruritis Neurological: no headaches, no confusion Psychiatric: no anxiety, no depression Exam - Constitutional Vitals: Temp Pulse Resp BP Pulse Ox 98.5 F 83 12 149/81 97 07/21/20 11:30 07/21/20 14:10 07/21/20 14:10 07/21/20 14:10 07/21/20 14:10 General appearance: Present: no acute distress, well-nourished - EENT Eyes: Present: PERRL, EOM intact. Absent: scleral icterus ENT: hearing intact, clear oral mucosa, dentition normal - Neck Neck: Present: supple, normal ROM - Respiratory Respiratory effort: normal Respiratory: bilateral: CTA - Cardiovascular Rhythm: regular Heart Sounds: Present: S1 & S2. Absent: gallop, systolic murmur, diastolic murmur, rub - Extremities Extremities: no ischemia, pulses intact, pulses symmetrical, No edema, normal temperature, normal color, Full ROM Peripheral Pulses: within normal limits - Abdominal General gastrointestinal: Present: soft, non-tender, non-distended, normal bowel sounds. Absent: mass - Integumentary Integumentary: Present: clear, warm, dry. Absent: rash - Musculoskeletal Musculoskeletal: strength equal bilaterally - Psychiatric Psychiatric: appropriate mood/affect, intact judgment & insight, memory intact, cooperative - Neurologic Neurologic: CNII-XII intact, no focal deficits, moves all extremities HEART Score - HEART Score History: Slightly suspicious EKG: Non-specific Age: > 65 Risk factors: > 3 risk factors or hx of atherosclerotic disease Troponin: Troponin T < 0.010 ng/mL (0.00-0.029) 07/21/20 13:23 Troponin: < normal limit HEART Score: 5 - Critical Actions Critical Actions: 4-6 pts:12-16.6% risk of adverse cardiac event. Should be admitted Results - Labs CBC & Chem 7: 07/21/20 13:23 07/21/20 17:56 Labs: Abnormal lab results 07/21/20 Range/Units 13:23 Carbon Dioxide 33 H (22-30) mmol/L Assessment and Plan - Patient Problems (1) Acute chest pain Current Visit: Yes Status: Acute Plan to address problem: Patient admitted to telemetry. Will check serial cardiac enzymes. Patient started on aspirin, sublingual nitroglycerin and IV morphine as needed for chest pain. We will await follow-up by cardiology. (2) Diabetes mellitus Current Visit: Yes Status: Acute Plan to address problem: Will monitor Accu-Cheks. (3) Dyslipidemia Current Visit: Yes Status: Acute Plan to address problem: We will continue routine home medications and monitor lipid profile. (4) DVT prophylaxis Current Visit: Yes Status: Acute Plan to address problem: Patient placed on subcutaneous Lovenox. (5) Full code status Current Visit: Yes Status: Acute Plan to address problem: Patient is a full code.
[2020-07-21 17:04] LABS: Total Cells Counted 100
[2020-07-21 17:06] LABS: Platelet Estimate Consistent w Auto
[2020-07-21 18:44] LABS: BUN/Creatinine Ratio 17; Blood Urea Nitrogen 15 mg/dL (7-17); Calcium 9.4 mg/dL (8.4-10.2); Chol/HDL Ratio 4.34 %; HDL Cholesterol 35 mg/dL (40-59); Hemolysis Index 11; LDL Cholesterol,Direct 107 mg/dL (50-130)
[2020-07-21] MEDS: INSULIN LISPRO 100 UNIT/ML VIAL 3 mL SUB-Q SCH (21:28)
[2020-07-21] MEDS: carvediloL 6.25 MG TAB PO SCH (21:30)
[2020-07-21] MEDS ORDERED: NON-FORMULARY EACH (Rosuvastatin Calcium [Crestor] 40 MG Tablet) PO SCH (22:00)
[2020-07-21] MEDS ORDERED: ENOXAPARIN 40 MG/0.4 ML INJ SUB-Q SCH (22:00)
[2020-07-22 05:26] LABS: Hematocrit 35.8 % (30.3-42.9); Mean Corpuscular HGB Conc 34 % (30-34); Mean Corpuscular Volume 93 fl (79-97); Platelet Count 252 K/mm3 (140-440); Red Blood Count 3.87 M/mm3 (3.65-5.03); Red Cell Distribution Width 13.6 % (13.2-15.2)
[2020-07-22 05:33] LABS: BUN/Creatinine Ratio 18; Blood Urea Nitrogen 16 mg/dL (7-17); Calcium 9.1 mg/dL (8.4-10.2); Hemolysis Index 0; INR 1.01 (0.87-1.13)
[2020-07-22 06:55] LABS: Total Cells Counted 100
[2020-07-22 06:56] LABS: Platelet Estimate Consistent w Auto
[2020-07-22] MEDS ORDERED: hydroCHLOROthiazide 12.5 MG CAP PO SCH (10:00)
[2020-07-22] MEDS ORDERED: ASPIRIN EC 325 MG TAB PO SCH (10:00)
[2020-07-22] MEDS ORDERED: REGADENOSON 0.4 MG/5 ML INJ IV ONE ×2 (10:03→10:05)
--- NOTE | 2020-07-22 10:09 | Consultation ---
History of Present Illness Consult date: 07/22/20 Consult reason: chest pain History of present illness: This is a 79-year old F who was sent to the emergency department by her plastic surgery manager for chest pain. Chest pain is atypical, poorly characterized and non-exertional. Cycled troponin measurements were normal and her ECG is benign, sinus rhythm. No acute ST or T wave changes. Patient was admitted by the hospitalist and has been ordered to undergo a stress thallium test today. Patient has had extensive cardiac workup. In 2017, patient underwent a cardiac catheterization that showed mild to moderate, non-obstructive coronary disease. Normal left ventricular systolic function, ejection fraction 55%. Just a year ago, as an outpatient, she had a negative stress thallium. Past History Past Medical History: diabetes, GERD, hypertension, hyperlipidemia Past Surgical History: No surgical history Social history: no significant social history Family history: no significant family history Medications and Allergies Allergies Allergy/AdvReac Type Severity Reaction Status Date / Time No Known Allergies Allergy Verified 07/21/20 11:25 Home Medications Medication Instructions Recorded Confirmed Last Taken Type HYDROcodone/APAP 7.5-325 [[place] 1 each PO Q8HR PRN #15 tablet 02/02/15 04/01/17 2 Months Ago Rx 7.5-325 mg TAB] ~01/29/17 Aspirin EC [Halfprin EC] 81 mg PO QDAY 04/01/17 04/01/17 03/31/17 History Cyclobenzaprine HCl [Flexeril 5 MG 5 mg PO PRN PRN 04/01/17 04/01/17 1 Month Ago History TAB] ~03/01/17 Insulin Glargine,Hum.rec.anlog 0 units SQ QHS 04/01/17 04/01/17 03/31/17 History [Lantus Solostar] Lansoprazole [Prevacid] 30 mg PO QDAY 04/01/17 04/01/17 03/31/17 History Rosuvastatin Calcium [Crestor] 40 mg PO QHS 04/01/17 04/01/17 03/31/17 History carvediloL [Coreg] 6.25 mg PO BID 04/01/17 04/01/17 03/31/17 History glipiZIDE [glipiZIDE XL] 10 mg PO BID 04/01/17 04/01/17 03/31/17 History hydroCHLOROthiazide [HCTZ] 12.5 mg PO QDAY 04/01/17 04/01/17 03/31/17 History HYDROcodone/APAP 5-325 [[place] 1 each PO Q6HR PRN #15 tablet 07/23/18 Unknown Rx 5/325] Active Meds: Active Medications Acetaminophen (Acetaminophen 325 Mg Tab) 650 mg PO Q4H PRN PRN Reason: Pain MILD(1-3)/Fever >100.5/RUIZ Aspirin (Aspirin Ec 325 Mg Tab) 325 mg PO QDAY [facility] Atorvastatin Calcium (Atorvastatin 40 Mg Tab) 80 mg PO QHS [facility] Last Admin: 07/21/20 21:29 Dose: 80 mg Documented by: Carvedilol (Carvedilol 6.25 Mg Tab) 6.25 mg PO BID [facility] Last Admin: 07/21/20 21:30 Dose: 6.25 mg Documented by: Dextrose (Dextrose 50% In Water (25gm) 50 Ml Syringe) 50 ml IV Q30MIN PRN; Protocol PRN Reason: Hypoglycemia Enoxaparin Sodium (Enoxaparin 40 Mg/0.4 Ml Inj) 40 mg SUB-Q QDAY@2200 [facility]; Protocol Last Admin: 07/21/20 21:30 Dose: 40 mg Documented by: Hydrochlorothiazide (Hydrochlorothiazide 12.5 Mg Cap) 12.5 mg PO QDAY [facility] Insulin Human Lispro (Insulin Lispro 100 Unit/Ml Vial 3 Ml) 0 unit SUB-Q ACHS [facility]; Protocol Last Admin: 07/21/20 21:28 Dose: 2 unit Documented by: Morphine Sulfate (Morphine 4 Mg/1 Ml Inj) 2 mg IV Q5MIN PRN PRN Reason: Chest Pain Nitroglycerin (Nitroglycerin 0.4 Mg Tab Subl) 0.4 mg SL Q5M PRN PRN Reason: Chest Pain Ondansetron HCl (Ondansetron 4 Mg/2 Ml Inj) 4 mg IV Q8H PRN PRN Reason: Nausea And Vomiting Sodium Chloride (Sodium Chloride 0.9% 10 Ml Flush Syringe) 10 ml IV BID [facility] Last Admin: 07/21/20 21:30 Dose: 10 ml Documented by: Sodium Chloride (Sodium Chloride 0.9% 10 Ml Flush Syringe) 10 ml IV PRN PRN PRN Reason: LINE FLUSH Physical Examination Vital Signs Temp Pulse Resp BP Pulse Ox 98.5 F 89 20 176/93 99 07/21/20 11:30 07/21/20 11:30 07/21/20 11:30 07/21/20 11:30 07/21/20 11:30 General appearance: no acute distress Cardiac: Positive: Reg Rate and Rhythm Results 07/22/20 04:43 07/22/20 04:43 Cardiac Enzymes 07/21/20 Range/Units 13:23 AST 18 (5-40) units/L Coagulation 07/22/20 Range/Units 04:43 PT 13.1 (12.2-14.9) Sec. INR 1.01 (0.87-1.13) Lipids 07/21/20 Range/Units 17:56 Triglycerides 116 (2-149) mg/dL Cholesterol 152 (50-199) mg/dL HDL Cholesterol 35 L (40-59) mg/dL Cholesterol/HDL Ratio 4.34 % CBC 07/21/20 07/22/20 Range/Units 13:23 04:43 WBC 5.1 5.5 (4.5-11.0) K/mm3 RBC 3.93 3.87 (3.65-5.03) M/mm3 Hgb 12.1 12.0 (10.1-14.3) gm/dl Hct 36.0 35.8 (30.3-42.9) % Plt Count 265 252 (140-440) K/mm3 Comprehensive Metabolic Panel 07/21/20 07/21/20 07/21/20 Range/Units 13:23 13:23 17:56 Sodium 141 141 (137-145) mmol/L Potassium 4.0 3.4 L (3.6-5.0) mmol/L Chloride 100.9 100.1 (98-107) mmol/L Carbon Dioxide 33 H 32 H (22-30) mmol/L BUN 14 15 (7-17) mg/dL Creatinine 0.8 0.9 (0.6-1.2) mg/dL Glucose 93 151 H (65-100) mg/dL Calcium 9.7 9.4 (8.4-10.2) mg/dL Direct Bilirubin < 0.2 (0-0.2) mg/dL Indirect Bilirubin 0.0 mg/dL AST 18 (5-40) units/L ALT 22 (7-56) units/L Alkaline Phosphatase 62 (35-129) units/L Total Protein 7.3 (6.3-8.2) g/dL Albumin 4.1 (3.9-5) g/dL 07/22/20 Range/Units 04:43 Sodium 141 (137-145) mmol/L Potassium 4.2 D (3.6-5.0) mmol/L Chloride 100.8 (98-107) mmol/L Carbon Dioxide 30 (22-30) mmol/L BUN 16 (7-17) mg/dL Creatinine 0.9 (0.6-1.2) mg/dL Glucose 195 H (65-100) mg/dL Calcium 9.1 (8.4-10.2) mg/dL Direct Bilirubin (0-0.2) mg/dL Indirect Bilirubin mg/dL AST (5-40) units/L ALT (7-56) units/L Alkaline Phosphatase (35-129) units/L Total Protein (6.3-8.2) g/dL Albumin (3.9-5) g/dL Assessment and Plan Chest pain, atypical 2018 MPI: negative 2016 LHC: mild to moderate non-obstructive CAD. LVEF 55% Hypertension Diabetes Patient will undergo a stress thallium test today. Results are pending.
[2020-07-22] MEDS: INSULIN LISPRO 100 UNIT/ML VIAL 3 mL SUB-Q SCH ×3 (11:56→17:25)
[2020-07-22] MEDS: carvediloL 6.25 MG TAB PO SCH (11:57)
--- NOTE | 2020-07-22 15:22 | Discharge Summary ---
Providers - Providers Date of Admission: 07/21/20 15:49 Date of discharge: 07/22/20 Attending physician: NOMI MACIAS MD 07/21/20 Consult to Cardiac Rehabilitation [CONS] Routine Reason For Exam: Phase I 07/21/20 15:38 Consult to Physician [CONS] Stat Comment: Consulting Provider: FABIOLA SKELTON Physician Instructions: Reason For Exam: chest pain 07/21/20 16:17 Consult to Dietitian/Nutrition [CONS] Routine Physician Instructions: Reason For Exam: Reason for Consult: Diet education Primary care physician: BRANDIE RESTREPO Hospitalization Condition: Stable Pertinent studies: Lexiscan stress test: Negative Hospital course: 79-year-old -[place] female with known history of hypertension, diabetes mellitus and hyperlipidemia been referred to the emergency room from her [facility] office today for evaluation of left-sided chest pain. Chest pain was said to have started about 3 weeks ago but got worse overnight. Pain was described as heaviness radiating towards the left lower extremity. She denies any headache or dizziness, no diaphoresis, no nausea or vomiting. Denies any fever or chills. Patient was given some nitroglycerin and aspirin at the [facility] office which she stated helped in improving the pain. Work-up in the emergency room today, chest x-ray, EKG and troponin were unremarkable. Patient being admitted for evaluation of chest pain. 07/22/2020 Patient seen today. Chest pain resolved Troponin has been negative. Patient had a stress test which has been negative. Disposition: - TO HOME OR SELFCARE Time spent for discharge: 30 minutes - Discharge Diagnoses (1) Acute chest pain Status: Acute (2) Diabetes mellitus Status: Acute (3) Dyslipidemia Status: Acute (4) DVT prophylaxis Status: Acute (5) Full code status Status: Acute Core Measure Documentation - Palliative Care Palliative Care/ Comfort Measures: Not Applicable - Core Measures Any of the following diagnoses?: none Exam - Constitutional Vitals: Temp Pulse Resp BP Pulse Ox 98.2 F 88 18 168/79 100 07/22/20 07:41 07/22/20 11:57 07/22/20 07:41 07/22/20 11:57 07/22/20 07:41 General appearance: Present: no acute distress, well-nourished - EENT Eyes: Present: PERRL ENT: hearing intact, clear oral mucosa - Neck Neck: Present: supple, normal ROM - Respiratory Respiratory effort: normal Respiratory: bilateral: CTA - Cardiovascular Heart Sounds: Present: S1 & S2. Absent: rub, click - Extremities Extremities: pulses symmetrical, No edema Peripheral Pulses: within normal limits - Abdominal General gastrointestinal: Present: soft, non-tender, non-distended, normal bowel sounds Female genitourinary: Present: normal - Integumentary Integumentary: Present: clear, warm, dry - Musculoskeletal Musculoskeletal: gait normal, strength equal bilaterally - Psychiatric Psychiatric: appropriate mood/affect, intact judgment & insight - Neurologic Neurologic: CNII-XII intact, moves all extremities Plan Activity: no restrictions Diet: low salt, diabetic Follow up with: BRANDIE RESTREPO MD [Primary Care Provider] - 3-5 Days
[2020-07-22 17:34] VITALS: BP 115/65
--- NOTE | 2020-07-22 18:38 | Treadmill Report ---
THALLIUM STRESS TEST LEFT VENTRICLE: Left ventricular chamber size is within normal spread. Perfusion study demonstrates homogeneous uptake of the tracer in all segments, no defects identified. Gated analysis demonstrates normal left ventricular systolic function, ejection fraction 64%. CONCLUSION: Normal myocardial perfusion study. JOB# [id number] CA/NTS
== END 2020-07-22 17:36 | disposition home or self-care (01) ==
LOC: ED 11:19 → 4A 15:49
PROVIDERS: ADMIT Internal Medicine Geriatric Medicine; ATTEND Internal Medicine Geriatric Medicine
DX: R07.89 Other chest pain (principal); E11.9 Type 2 diabetes mellitus without complications; E78.5 Hyperlipidemia, unspecified; I10 Essential (primary) hypertension; K21.9 Gastro-esophageal reflux disease without esophagitis; M19.90 Unspecified osteoarthritis, unspecified site; J45.909 Unspecified asthma, uncomplicated; R56.9 Unspecified convulsions; Z79.4 Long term (current) use of insulin; Z79.82 Long term (current) use of aspirin; Z98.890 Other specified postprocedural states
CPT/HCPCS: 36415; 71046; 78452; 80048; 80061; 80076; 82962; 84484; 85025; 85610; 93005; 93017; 93306; 96372; 99285; A9270; A9502; G0378; J1650; J2785; 85007

== ENCOUNTER → 2021-06-16 | Outpatient (CLI) | payer MEDICARE | END | disposition home or self-care (01) | LOC: SLR 11:00 | PROVIDERS: ATTEND Internal Medicine | DX: G47.30 Sleep apnea, unspecified (principal) | CPT/HCPCS: 95810 ==

== ENCOUNTER → 2021-08-25 | Outpatient (CLI) | payer MEDICARE | END | disposition home or self-care (01) | LOC: SLR 11:00 | PROVIDERS: ATTEND Internal Medicine | DX: G47.33 Obstructive sleep apnea (adult) (pediatric) (principal) | CPT/HCPCS: 95811 ==